=== PATIENT | female | born 1975 | race Caucasian/White ===

== ENCOUNTER 2021-07-08 06:28 | Day surgery (SDC) | payer OTHER ==
[~2021-07-08] VITALS: Ht 167.6 cm; Wt 63.5 kg
[2021-07-08] MEDS ORDERED: fentaNYL citrate 0.05 MG/ML VIAL ONE (07:52)
[2021-07-08] MEDS ORDERED: MIDAZOLAM 5 MG/5 ML VIAL ONE (07:52)
[2021-07-08] MEDS ORDERED: LIDOCAINE 2% 100 MG/5 ML UJET TP ONE (07:52)
[2021-07-08] MEDS ORDERED: fentaNYL citrate 0.05 MG/ML VIAL IVP ONE (13:45)
== END 2021-07-08 09:16 | disposition home or self-care (01) ==
LOC: MDS 06:28 → MMU 06:32 → MDS 09:16
PROVIDERS: ATTEND Internal Medicine Gastroenterology
DX: K62.5 Hemorrhage of anus and rectum (principal); K64.8 Other hemorrhoids; E44.1 Mild protein-calorie malnutrition; J45.909 Unspecified asthma, uncomplicated; F32.9 Major depressive disorder, single episode, unspecified; Z98.84 Bariatric surgery status; Z79.899 Other long term (current) drug therapy; Z20.822 Contact with and (suspected) exposure to COVID-19
CPT/HCPCS: 45330; 81025; 87426; J3010; 45350; J2250